=== PATIENT | female | born 1960 | race Caucasian/White ===

== ENCOUNTER 2019-03-25 15:18 | Emergency (ER) | payer BC ==
[2019-03-25 16:06] VITALS: BP 128/97
--- NOTE | 2019-03-25 16:25 | UC ---
Complaint Female HPI - HPI Summary HPI Summary: 58 yo postmenopausal woman with onset last evening of frequency, urgency and dysuria, which she attributes to inadequate hydration during weekend travel. No vaginal symptoms, fever or back pain. - History Of Current Complaint Chief Complaint: UCGU Stated Complaint: UTI Time Seen by Provider: 03/25/19 16:14 Hx Obtained From: Patient Onset/Duration: Sudden Onset, Lasting Hours - 24 Timing: Intermittent, Lasting Minutes Severity Initially: Mild Severity Currently: Moderate Pain Intensity: 4 Character: Burning, Cramping Aggravating Factor(s): Urination Alleviating Factor(s): Meds Associated Signs And Symptoms: Negative: Fever, Back Pain, Vaginal Bleeding/ Discharge, Nausea, Vomiting(# Of Episodes =) - Risk Factors Ectopic Risk Factor: Negative Ovarian Torsion Risk Factor: Negative - Allergies/Home Medications Allergies/Adverse Reactions: Allergies Allergy/AdvReac Type Severity Reaction Status Date / Time MS Penicillins [Penicillins] Allergy Severe Difficulty Verified 05/14/18 15:50 Breathing Penicillins Allergy Severe Difficulty Verified 03/25/19 15:59 Breathing PMH/Surg Hx/FS Hx/Imm Hx Previously Healthy: Yes Neurological History: Migraine - with aura - Surgical History Surgical History: None - Family History Known Family History: Positive: Other - migraine. - Social History Occupation: Employed Full-time Lives: With Family - x years. Youngest daughter in senior year of college. Alcohol Use: Rare Substance Use Type: None Smoking Status (MU): Never Smoked Tobacco Have You Smoked in the Last Year: No Review of Systems All Other Systems Reviewed And Are Negative: Yes Constitutional: Positive: Fatigue - poor sleep last night. Skin: Positive: Negative Eyes: Positive: Negative ENT: Positive: Negative Genitourinary: Positive: Dysuria, Hematuria, Frequency, Urgency Motor: Positive: Negative Neurovascular: Positive: Negative Neurological: Positive: Negative Psychological: Positive: Negative Is Patient Immunocompromised?: No Physical Exam Triage Information Reviewed: Yes Appearance: Well-Appearing, Pain Distress - mild Vital Signs: Initial Vital Signs Temp 99.6 F 03/25/19 16:01 Pulse 90 03/25/19 16:01 Resp 18 03/25/19 16:01 BP 128/97 03/25/19 16:01 Pulse Ox 99 03/25/19 16:01 ENT: Positive: Pharynx normal Neck: Positive: Supple, Nontender, No Lymphadenopathy Respiratory: Positive: Lungs clear, Normal breath sounds Cardiovascular: Positive: RRR, No Murmur Abdomen Description: Positive: No Organomegaly, Soft, Other: - mild suprapubic tenderness.. Negative: CVA Tenderness (R), CVA Tenderness (L), Distended, Guarding Neurological Exam: Normal Psychological Exam: Normal Skin Exam: Normal Diagnostics - Laboratory Lab Results: UA positive for leuks, protein, esterace and rbc's Complaint Female Dx - Course Course Of Treatment: Continue increased fluids, prescribe bactrim for treatment, follow up culture to ensure adequate treatment. - Differential Dx/Diagnosis Differential Diagnosis/HQI/PQRI: Renal Colic, Urinary Tract Infection Provider Diagnosis: UTI (urinary tract infection) Discharge ED - Sign-Out/Discharge Documenting (check all that apply): Patient Departure All imaging exams completed and their final reports reviewed: No Studies - Discharge Plan Condition: Stable Disposition: HOME Prescriptions: Phenazopyridine 200 mg (NF) [Pyridium 200 MG tab *] 200 mg PO TID PRN #10 tab PRN Reason: Spasms - Bladder Sulfamethox/Trimethoprim DS* [Bactrim DS 800/160 TAB*] 1 tab PO BID #14 tab Patient Education Materials: Urinary Tract Infection in Women (ED) Referrals: Fransisco Jang MD [Primary Care Provider] - Additional Instructions: Ensure high intake of fluids and take pyridium as needed for bladder spasm. Begin bactrim for treatment; urine culture has been ordered. You will be notified if a change of antibiotic is needed. Urine culture takes 2 to 3 days before results are available. Followup if you develop fever or increasing back pain. - Billing Disposition and Condition Condition: STABLE Disposition: Home
== END 2019-03-25 17:05 | disposition home or self-care (01) ==
LOC: UCEAST 15:18
DX: N39.0 Urinary tract infection, site not specified (principal); Z88.0 Allergy status to penicillin
CPT/HCPCS: 81003; 87077; 87086; 87186; 99212; G0463

== ENCOUNTER → 2019-09-03 | Day surgery (SDC) | payer BC ==
[~2019-09-03] MED LIST: Atracurium* 10 MG/ML 10 ML VIAL ONE; Buffered Lidocaine 1% SYRIN* 1 ML/SYRINGE INTRADERM ONE; Bupivacaine 0.5% W/EPI SDV* 10 ML VIAL INJ ONE; Clindamycin 900 MG/D5W BAG(*) 900 MG/50 ML BAG IVPB ONE; Dexamethasone IV* 4 MG/ML 1 ML (4 MG) IV SLOW PU ONE; Dexamethasone IV* 4 MG/ML 1 ML (4 MG) ONE; DiMENhydriNATE IV* 50 MG/ML VIAL IV PUSH PRN; DiMENhydriNATE IV* 50 MG/ML VIAL ONE; EPINEPHRINE 1 MG/ML 1 ML VIAL ONE; Famotidine IV* 10 MG/ML 2 ML (20 mg) IV ONE; Famotidine IV* 10 MG/ML 2 ML (20 mg) ONE; HYDROmorphone INJ1* 1 MG/ML SYRINGE ONE; Ketorolac INJ* 30 MG/ML 1 ML VIAL ONE; Lactated Ringers 1000 ML Bag* 1,000 ML IV SCH; Lidocaine 2% PF * 5 ML VIAL ONE; Midazolam* 1 MG/ML 5 ML VIAL (5 MG) ONE; Naloxone* 0.4 MG/ML 1 ML VIAL IV PRN; Ondansetron INJ* 2 MG/ML VIAL IV PRN; Ondansetron INJ* 2 MG/ML VIAL ONE; Propofol* 10 MG/ML 20 ML BTL ONE; Scopolamine 1.5 mg* PATCH TRANSDERM PRN; fentaNYL* 50 MCG/ML 2 ML VIAL (100 MCG VIAL) ONE; fentaNYL* 50 MCG/ML 5 ML VIAL (250 MCG VIAL) ONE; oxyCODONE/Acetamin 5/325 MG* TAB ONE
[2019-09-03] MEDS: fentaNYL* 50 MCG/ML 2 ML VIAL (100 MCG VIAL) IV PRN ×2 (09:54→10:02)
[2019-09-03] MEDS: HYDROmorphone INJ1* 1 MG/ML SYRINGE IV PRN ×3 (10:32→10:54)
[2019-09-03] MEDS: oxyCODONE/Acetamin 5/325 MG* TAB PO PRN ×2 (11:55→14:11)
[2019-09-03 14:12] VITALS: BP 108/75
--- NOTE | 2019-09-03 17:26 | OP ---
OPERATIVE REPORT: DATE OF OPERATION: 09/03/19 DATE OF : 60 SURGEON: Kenneth Dorsey MD PRIVATE CHEF: KEIKO Campos A physician vector control assistant was required for the length of the procedure for assistance with patient positi oning, retraction, instrumentation, knee manipulation, closure. ANESTHESIOLOGIST: Dr. Olguin. ANESTHESIA: General anesthesia, local anesthesia consisting of 20 cc of Marcaine with epinephrine. PRE-OP DIAGNOSES: 1. Left knee tibial eminence fracture, distal ACL avulsion. 2. Left knee possible medial meniscus tear. POST-OP DIAGNOSES: Left knee tibial eminence fracture, distal ACL avulsion. OPERATIVE PROCEDURE: Left knee arthroscopic reduction internal fixation tibial eminence, distal ACL avulsion fracture. ANTIBIOTICS: Clindamycin 900 mg IV IV FLUIDS: See Anesthesia note. SKIN TO SKIN TIME: 79 minutes. TOURNIQUET TIME: 84 minutes at 300 mmHg, left proximal thigh tourniquet. SPECIMEN: None IMPLANTS: Suture tape 1.3 mm flat braid x2 from Arthrex. Arthrex metal suture button x1. COMPLICATIONS: None. ESTIMATED BLOOD LOSS: Minimal. 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 [facility] The patient thought that she also injured her coccyx. The patient saw one my partners at [facility], who ordered a CT scan that showed some comminuted fracture of the tibial eminence. Some of the fragments were as tall from superior to inferior as 4.5 mm. I measured retraction of those fragment s off of the bone bed as much as 5.5 mm. I obtained an MRI scan to look for any additional soft tissue injuries. There was a question of some degenerative change to the medial meniscus, possible but not definitive tear. There was also possib le low-grade partial thickness stretch or tear of the ACL. There was no high-grade partial or a full -thickness tear of the ACL. ACL looked fully intact. I spoke to the patient preoperatively about both arthroscopic reduction and internal fixation along w ith ACL reconstruction with bone patella bone allograft. I spoke about how the first procedure, arthr oscopic reduction internal fixation would be less invasive and more anatomic, but would require a slo wer functional progression postoperatively, with some restrictions and limitations to make sure that there was time for bone to bone healing. Discussed risks and potential complications of surgeries including ACL rerupture, knee stiffness, and all the typical risk and potential complications of surgery, orthopedic, knee surgery in general. DESCRIPTION OF PROCEDURE: In preop holding, the patient signed the written consent. Operative extre georgina was marked in preoperative holding. The patient was taken back to the operating room and placed supine on operating table. Sedated and intubated. A blanket bump was placed under the left hemipelvis. A tourniquet was placed about the left proximal thigh. A lateral post was placed on the table, which was remained flat. The patient's left lower e xtremity was prepped and draped. Formal surgical timeout. Esmarch was applied and tourniquet was el evated. I made a knee anterolateral arthroscopy portal. I commenced diagnostic arthroscopy. No articular ca rtilage injury to patellofemoral compartment. There was some inflamed synovitic tissue anterior. I moved down to the anterior aspect of the knee joint where the patient was noted to have a robust liga mentum mucosum. I moved to the medial compartment. There was some waviness to the posterior horn of the medial meniscus, which maybe want to examine this more closely. I established an anteromedial knee arthroscopy portal using standard technique under direct visualiza tion. I probed the medial meniscus and there was no clear tear. I moved to the anterior aspect of the knee joint and with an arthroscopic shaver I debrided the ligam entum mucosum. I examined the ACL. It really looked pristine on first glance. No clear tear to it either proximal, middle, or distal. There was some synovium overlying the fracture site. [facility] knee positioner was put into place and I advanced with the knee arthroscopy. I probed the ACL. It was intact. I then probed around the fracture site distally. I brought in an a rthroscopic shaver and debrided the inferior fracture bed. I did this with the shaver. This lifted up the ACL, insertion, more clearly revealing the injury site. I prepared the bone bed a little bit with an arthroscopic bur to facilitate good bony healing. I next placed 2 suture tapes through the ACL using Arthrex retrograde Lasso passer. One was placed tw o-thirds of the way and the other was placed one-third of the way from anterior to posterior through the ligament. I liked my stitches through the ACL. I was very happy with them. I next established my suture tunnels. I had definitively decided to perform arthroscopic reduction i nternal fixation given the excellent condition of the ACL, the good quality of the stitches, and the reducibility of the fracture site. Using a multipurpose Arthrex drill, I next placed 2 suture tunnels with a 3.0 mm drill bit. Prior to using that of course, I made a longitudinal incision at the level of the tibial tubercle, over the a nteromedial lower leg. I dissected down to periosteum. I next drilled both tunnels and pulled the s uture through the tunnels distally. I stuck my arthroscope in the knee and confirmed excellent stitches and excellent reducibility of the ACL in a variety of knee flexion positions. With the knee fully extended and a posterior drawer maneuver applied, I tied my suture tape distally using a suture button. I tied 2 simple stitch knots. I returned to the knee joint and confirmed excellent tension of ACL ligament and excellent reduction of bony fragments and base of ACL. Closure of longitudinal incision distally with buried simple stitches using Vicryl 2.0 suture in the subcutaneous. Closure of the skin on all incisions with nylon 3.0 suture. Local anesthetic injected . Xeroform, 4x4s, ABD, sterile Webril, Blas bandage. Cooling unit and knee brace locked in extension . The patient was awakened extubated and transferred to the PACU. DISPOSITION: The patient will receive Percocet as needed for pain control, Bactrim for 3 days for in fection prophylaxis and aspirin for DVT prophylaxis. The patient will remain locked in extension for 2 weeks. Wound instructions provided. I was okay with the patient being partial weightbearing if u sing the crutches at all times. I anticipate the patient being on crutches for a total of 6 weeks po stoperative. Again, the patient will see me in 10 to 14 days postoperative. Spoke to the patient's f amily and the patient about postop restrictions. [id number]/[facility] #: [id number]
== END | disposition home or self-care (01) ==
LOC: OR 05:36
PROVIDERS: ATTEND Orthopaedic Surgery
DX: S82.112A Displaced fracture of left tibial spine, initial encounter for closed fracture (principal); Z88.0 Allergy status to penicillin; V00.328A Other snow-ski accident, initial encounter; Y93.23 Activity, snow (alpine) (downhill) skiing, snowboarding, sledding, tobogganing and snow tubing; Y92.838 Other recreation area as the place of occurrence of the external cause
CPT/HCPCS: A9270-GY; J1100; J1170; J1240; J1885; J2250; J2405; J2704; J3010